=== PATIENT | female | born 1950 | race Hispanic/Latino ===

== ENCOUNTER → 2017-07-11 | Outpatient (CLI) | payer MEDICARE ==
--- NOTE | 2017-07-11 11:59 | Diagnostic Imaging Report ---
EXAM: DXA BONE DENSITY INDICATIONS: DISORDER OF BONE COMPARISON: None. FINDINGS: Proximal left femur bone mineral density (BMD) (g/cm2):0.57 Femur T-score (standard deviation relative to young adult mean BMD): -2.6 Femur Z-score (standard deviation relative to age-matched control group):-1.1 Lumbar bone mineral density (BMD) (g/cm2):0.97 Lumbar T-score (standard deviation relative to young adult mean BMD): -0.7 Lumbar Z-score (standard deviation relative to age-matched control group):1.2 Change since prior exam (%): Femur:Not applicable. Spine:Not applicable. Change since oldest prior exam (%): Femur:Not applicable. Spine:Not applicable. CONCLUSION: 1. Bone mineral density in the left femur is classified as osteoporosis. Fracture risk is high. 2. Bone mineral density in the spine is classified as normal. Fracture risk is not increased. World Health Organization Classification: *The Z-score is provided for informational purposes. The T-score is preferable for clinical decisions. When comparing exams, a change of >4% is considered statistically significant. SUGGESTED RECOMMENDATIONS: Normal \T\ Osteopenia:Consideration should be given to use of calcium supplementation, daily multiple vitamins and adequate exercise, as preventive measures against osteoporosis, if clinically indicated. Osteoporosis \T\ Severe Osteoporosis:In addition to the above, consideration should be given to medical therapy against osteoporosis, if clinically indicated. Dictated by: Ralph Dumont M.D. on 07/11/2017 at 12:07 Electronically approved by: Ralph Dumont M.D. on 07/11/2017 at 12:07
== END ==
LOC: DX 09:22
PROVIDERS: ATTEND Internal Medicine
DX: M89.9 Disorder of bone, unspecified (principal)
CPT/HCPCS: 77080

== ENCOUNTER → 2018-02-09 | Outpatient (CLI) | payer MEDICARE | LOC: MAMMO 08:24 | PROVIDERS: ATTEND Internal Medicine | DX: Z12.31 Encounter for screening mammogram for malignant neoplasm of breast (principal) | CPT/HCPCS: 77067 ==

== ENCOUNTER → 2021-07-29 | Day surgery (SDC) | payer MEDICARE ==
[2021-07-27 12:41] LABS: BASOPHILS % 0.4 % (0.0-1.0); EOSINOPHILS # (AUTO) 0.2 (0.0-0.4); EOSINOPHILS % 3.2 % (0.0-6.0); HEMATOCRIT 44.4 % (34.2-44.1); HEMOGLOBIN 14.6 g/dL (12.0-16.0); LYMPHOCYTES % 40.8 % (18.0-39.1); MEAN CORPUSCULAR HEMOGLOBIN 29.9 pg (28-32); MEAN CORPUSCULAR HGB CONC 32.9 g/dL (31-35); MONOCYTES # (AUTO) 0.5 (0.2-0.8); NEUTROPHILS # (AUTO) 3.6 (2.1-6.9); NEUTROPHILS % 48.5 % (38.7-80.0); PLATELET COUNT 197 x10e3/uL (140-360); RED BLOOD COUNT 4.88 x10e6/uL (3.6-5.1); RED CELL DISTRIBUTION WIDTH 13.7 % (11.7-14.4)
[2021-07-27 12:56] LABS: ANION GAP 15.3 mmol/L (8-16); CALCIUM 9.4 mg/dL (8.4-10.2); CREATININE, SERUM 0.66 mg/dL (0.57-1.11); POTASSIUM 4.3 mmol/L (3.5-5.1)
[~2021-07-29] MED LIST: ALENDRONATE SOD70 MG PO; ATORVASTATIN CA20 MG PO; BALANCED SALT SOLN (OPTH) 15 ML BTL IO ONE; BUPIVACAINE HC 0.75% PF 10ML VIAL INJ ONE; CETIRIZINE HCL10 MG PO; CYCLOPENTOLATE HCL 1% OPTH SOLN 2ML BTL ONE; EPINEPHRINE HCL 1:1000 1ML 1 MG/ML AMP ONE; GATIFLOXACIN(OPTH) 5 ML LIQD ONE; HUMULIN 70100 UNIT/1 SC; HYDRALAZINE HCL50 MG PO; JARDIANCE25 MG PO; LIDOCAINE HCL 2% LOCAL INJ 5 ML SDV VIAL INJ ONE; LIDOCAINE HCL-PF 4% 40 MG/1 ML 5ML AMP ONE; LOSARTAN POTASS25 MG PO; METOPROLOL SUCC50 MG PO; MIDAZOLAM HCL 2 MG/2 ML VIAL ONE; OMEGA 3 1,0001 EACH PO; PHENYLEPHRINE HCL 2 ML DROPS ONE; POVIDONE IODINE 0.05% 0.05 % ML PO ONE; POVIDONE IODINE 5% (OPTH) 30 ML BTL ONE; PROPOFOL IV EMULSION 10 MG/ML 20 ML VIAL ONE; RELION NOV100 UNIT/1 SQ; TOBRAMYCIN/DEXAMETHASONE(OPTH) 3.5 GM TUBE ONE; VITAMIN D250 MCG PO
[2021-07-29 11:33] VITALS: BP 123/52
== END | disposition home or self-care (01) ==
LOC: OR 08:08
PROVIDERS: ATTEND Ophthalmology
DX: H25.11 Age-related nuclear cataract, right eye (principal); E11.9 Type 2 diabetes mellitus without complications; I10 Essential (primary) hypertension; J45.909 Unspecified asthma, uncomplicated; E78.5 Hyperlipidemia, unspecified; Z88.8 Allergy status to other drugs, medicaments and biological substances; Z01.810 Encounter for preprocedural cardiovascular examination; Z01.812 Encounter for preprocedural laboratory examination; Z20.822 Contact with and (suspected) exposure to COVID-19; Z79.4 Long term (current) use of insulin; Z79.899 Other long term (current) drug therapy
CPT/HCPCS: 36415; 66984; 80048; 85025; 93005; J0171; U0002; 82948; J2001; J2250

== ENCOUNTER → 2021-12-30 | Day surgery (SDC) | payer MEDICARE ==
[2021-12-28 09:22] LABS: BASOPHILS # (AUTO) 0.1 (0.0-0.1); BASOPHILS % 0.7 % (0.0-1.0); EOSINOPHILS # (AUTO) 0.3 (0.0-0.4); EOSINOPHILS % 3.4 % (0.0-6.0); HEMATOCRIT 42.9 % (34.2-44.1); HEMOGLOBIN 14.4 g/dL (12.0-16.0); LYMPHOCYTES % 39.5 % (18.0-39.1); MEAN CORPUSCULAR HEMOGLOBIN 30.4 pg (28-32); MEAN CORPUSCULAR HGB CONC 33.6 g/dL (31-35); MEAN CORPUSCULAR VOLUME 90.5 fL (81-99); MONOCYTES # (AUTO) 0.5 (0.2-0.8); MONOCYTES % 6.4 % (4.4-11.3); NEUTROPHILS # (AUTO) 3.8 (2.1-6.9); NEUTROPHILS % 49.9 % (38.7-80.0); PLATELET COUNT 207 x10e3/uL (140-360); RED BLOOD COUNT 4.74 x10e6/uL (3.6-5.1); RED CELL DISTRIBUTION WIDTH 13.2 % (11.7-14.4)
[2021-12-28 09:40] LABS: ANION GAP 16.3 mmol/L (8-16); CALCIUM 8.9 mg/dL (8.4-10.2); CREATININE, SERUM 0.66 mg/dL (0.57-1.11); POTASSIUM 3.3 mmol/L (3.5-5.1)
[~2021-12-30] MED LIST changes: +FENTANYL CITRATE/PF 100MCG/2 ML INJ ONE; +LIDOCAINE 2% /EPINEPHRINE 20 ML SDV INJ ONE; -LIDOCAINE HCL 2% LOCAL INJ 5 ML SDV VIAL INJ ONE; +LYUMJEV KW100 UNIT/1 SC; +TOUJEO SOL300 UNIT/1 SC; +amlodipine PO
[2021-12-30 10:23] VITALS: BP 131/61
== END | disposition home or self-care (01) ==
LOC: OR 07:40
PROVIDERS: ATTEND Ophthalmology
DX: H25.12 Age-related nuclear cataract, left eye (principal); E11.9 Type 2 diabetes mellitus without complications; I10 Essential (primary) hypertension; J45.909 Unspecified asthma, uncomplicated; F41.9 Anxiety disorder, unspecified; Z88.8 Allergy status to other drugs, medicaments and biological substances; Z01.810 Encounter for preprocedural cardiovascular examination; Z01.812 Encounter for preprocedural laboratory examination; Z20.822 Contact with and (suspected) exposure to COVID-19; Z79.4 Long term (current) use of insulin; Z79.899 Other long term (current) drug therapy
CPT/HCPCS: 36415 ×2; 66984; 80048; 82948; 85025; 93005; J0171; J2001; J2250; J2704; J3010; U0002; V2632

== ENCOUNTER 2024-06-27 11:19 | Observation (INO) | payer MEDICARE ==
[~2024-06-27] VITALS: Ht 149.9 cm; Wt 59.0 kg
[~2024-06-27 11:19] MED LIST changes: -BALANCED SALT SOLN (OPTH) 15 ML BTL IO ONE; -BUPIVACAINE HC 0.75% PF 10ML VIAL INJ ONE; -CYCLOPENTOLATE HCL 1% OPTH SOLN 2ML BTL ONE; -EPINEPHRINE HCL 1:1000 1ML 1 MG/ML AMP ONE; -FENTANYL CITRATE/PF 100MCG/2 ML INJ ONE; -GATIFLOXACIN(OPTH) 5 ML LIQD ONE; -LIDOCAINE 2% /EPINEPHRINE 20 ML SDV INJ ONE; -LIDOCAINE HCL-PF 4% 40 MG/1 ML 5ML AMP ONE; -MIDAZOLAM HCL 2 MG/2 ML VIAL ONE; -PHENYLEPHRINE HCL 2 ML DROPS ONE; -POVIDONE IODINE 0.05% 0.05 % ML PO ONE; -POVIDONE IODINE 5% (OPTH) 30 ML BTL ONE; -PROPOFOL IV EMULSION 10 MG/ML 20 ML VIAL ONE; -TOBRAMYCIN/DEXAMETHASONE(OPTH) 3.5 GM TUBE ONE
[2024-06-27 11:31] VITALS: TEMP 98.2
[2024-06-27 12:13] LABS: BASOPHILS % 0.4 % (0.0-1.0); EOSINOPHILS # (AUTO) 0.2 (0.0-0.4); EOSINOPHILS % 2.3 % (0.0-6.0); HEMATOCRIT 39.6 % (34.2-44.1); HEMOGLOBIN 13.7 g/dL (12.0-16.0); LYMPHOCYTES # (AUTO) 2.3 (1.0-3.2); LYMPHOCYTES % 30.9 % (18.0-39.1); MEAN CORPUSCULAR HEMOGLOBIN 31.6 pg (28-32); MEAN CORPUSCULAR HGB CONC 34.6 g/dL (31-35); MEAN CORPUSCULAR VOLUME 91.2 fL (81-99); MONOCYTES # (AUTO) 0.4 (0.2-0.8); MONOCYTES % 5.6 % (4.4-11.3); NEUTROPHILS # (AUTO) 4.5 (2.1-6.9); NEUTROPHILS % 60.5 % (38.7-80.0); PLATELET COUNT 179 x10e3/uL (140-360); RED BLOOD COUNT 4.34 x10e6/uL (3.6-5.1); RED CELL DISTRIBUTION WIDTH 13.3 % (11.7-14.4)
[2024-06-27 12:46] LABS: ALBUMIN 3.8 g/dL (3.5-5.0); ALBUMIN/GLOBULIN RATIO 1.2 (0.8-2.0); ANION GAP 17.4 mmol/L (8-16); BILIRUBIN,TOTAL 0.4 mg/dL (0.2-1.2); CREATININE, SERUM 0.6 mg/dL (0.57-1.11); TOTAL PROTEIN 6.9 g/dL (6.5-8.1)
[2024-06-27 12:49] LABS: POTASSIUM 3.4 mmol/L (3.5-5.1)
[2024-06-27] MEDS ORDERED: IOPAMIDOL 370 MG/ML 100 ML INFUS..BTL INJ ONE (14:01)
[2024-06-27 15:15] VITALS: PULSE 63; RESP 16
[2024-06-27] MEDS ORDERED: SODIUM CHLORIDE FLUSH 10 ML SYR INJ PRN (15:15)
[2024-06-27] MEDS ORDERED: ONDANSETRON HCL INJ 2MG/ML 2ML 2 MG/ML VIAL IV PRN (15:15)
[2024-06-27] MEDS ORDERED: LOSARTAN POTASS50 MG PO (17:24)
[2024-06-27] MEDS ORDERED: CYCLOBENZAPRINE5 MG PO (17:24)
[2024-06-27] MEDS ORDERED: OMEPRAZOLE40 MG PO (17:24)
[2024-06-27] MEDS ORDERED: AMLODIPINE BESY10 MG PO (17:24)
[2024-06-27] MEDS ORDERED: ATORVASTATIN CA80 MG PO (17:24)
[2024-06-27] MEDS ORDERED: METOPROLOL SUCC50 MG PO (17:24)
[2024-06-27] MEDS ORDERED: ALENDRONATE SOD70 MG PO (17:24)
[2024-06-27] MEDS ORDERED: OMEGA-3 ACID ETH1 GM PO (17:24)
[2024-06-27] MEDS ORDERED: JARDIANCE25 MG PO (17:24)
[2024-06-27] MEDS ORDERED: HYDRALAZINE HCL50 MG PO (17:24)
[2024-06-27 17:33] VITALS: BP 131/60; PULSE 65; RESP 16; TEMP 97.6; O2SAT 96
[2024-06-27 20:15] VITALS: BP 149/57; PULSE 61; RESP 21; TEMP 97.8; O2SAT 96
[2024-06-27] MEDS: ATORVASTATIN 40 MG TAB PO SCH (20:40)
[2024-06-28] VITALS (10 sets, daily range): BP systolic 116–145; BP diastolic 51–64; PULSE 58–65; RESP 16–18; TEMP 97.7–98.2; O2SAT 97–99
[2024-06-28 00:04] LABS: TROPONIN I 0.007 ng/mL (0-0.300)
[2024-06-28 06:34] LABS: BASOPHILS % 0.5 % (0.0-1.0); EOSINOPHILS # (AUTO) 0.4 (0.0-0.4); EOSINOPHILS % 4.6 % (0.0-6.0); HEMATOCRIT 40.7 % (34.2-44.1); HEMOGLOBIN 13.2 g/dL (12.0-16.0); LYMPHOCYTES # (AUTO) 2.9 (1.0-3.2); LYMPHOCYTES % 37.5 % (18.0-39.1); MEAN CORPUSCULAR HEMOGLOBIN 31.1 pg (28-32); MEAN CORPUSCULAR HGB CONC 32.4 g/dL (31-35); MEAN CORPUSCULAR VOLUME 95.8 fL (81-99); MONOCYTES # (AUTO) 0.5 (0.2-0.8); MONOCYTES % 5.8 % (4.4-11.3); NEUTROPHILS % 51.3 % (38.7-80.0); PLATELET COUNT 164 x10e3/uL (140-360); RED BLOOD COUNT 4.25 x10e6/uL (3.6-5.1); RED CELL DISTRIBUTION WIDTH 13.2 % (11.7-14.4); WHITE BLOOD COUNT 7.78 x10e3/uL (4.8-10.8)
[2024-06-28 06:57] LABS: CREATINE KINASE 40 IU/L (29-168)
[2024-06-28 06:59] LABS: ALBUMIN 3.4 g/dL (3.5-5.0); ALBUMIN/GLOBULIN RATIO 1.2 (0.8-2.0); ANION GAP 16.9 mmol/L (8-16); BILIRUBIN,TOTAL 0.4 mg/dL (0.2-1.2); CALCIUM 8.7 mg/dL (8.4-10.2); CREATININE, SERUM 0.64 mg/dL (0.57-1.11); POTASSIUM 3.9 mmol/L (3.5-5.1); TOTAL PROTEIN 6.3 g/dL (6.5-8.1)
[2024-06-28 07:05] LABS: TROPONIN I < 0.001 ng/mL (0-0.300)
[2024-06-28] MEDS: FENOFIBRATE 145 MG TAB PO SCH (09:07)
[2024-06-28] MEDS ORDERED: DEXTROSE 50% SYRINGE 50 ML IV PRN ×2 (09:45→12:15)
[2024-06-28] MEDS: INSULIN LISPRO 100 UNIT/1 ML 3ML VIAL SQ SCH (12:13)
[2024-06-28] MEDS ORDERED: MELATONIN 3 MG TAB PO PRN (12:15)
[2024-06-28] MEDS ORDERED: SIMETHICONE 80 MG CHEW PO PRN (12:15)
[2024-06-28] MEDS ORDERED: IBUPROFEN 400 MG TAB PO PRN (13:00)
[2024-06-28] MEDS: IBUPROFEN 600 MG TAB PO PRN (14:11)
[2024-06-28 15:44] LABS: CHOL/HDL RATIO 4.6 (3.0-3.6)
[2024-06-28] MEDS ORDERED: INSULIN REGULAR, HUMAN 100 UNIT/1 ML SQ SCH (16:30)
[2024-06-28] MEDS: PANTOPRAZOLE SOD 40 MG TABEC PO SCH (17:40)
[2024-06-28] MEDS ORDERED: ATORVASTATIN CALCIUM PO SCH (21:00)
[2024-06-29 03:33] VITALS: BP 134/63; PULSE 60; RESP 18; TEMP 97.7; O2SAT 98
[2024-06-29 06:46] LABS: BASOPHILS % 0.5 % (0.0-1.0); EOSINOPHILS # (AUTO) 0.3 (0.0-0.4); EOSINOPHILS % 4.4 % (0.0-6.0); HEMATOCRIT 39.6 % (34.2-44.1); HEMOGLOBIN 13.8 g/dL (12.0-16.0); LYMPHOCYTES # (AUTO) 2.7 (1.0-3.2); LYMPHOCYTES % 41.2 % (18.0-39.1); MEAN CORPUSCULAR HEMOGLOBIN 31.7 pg (28-32); MEAN CORPUSCULAR HGB CONC 34.8 g/dL (31-35); MEAN CORPUSCULAR VOLUME 90.8 fL (81-99); MONOCYTES # (AUTO) 0.5 (0.2-0.8); NEUTROPHILS # (AUTO) 3.1 (2.1-6.9); NEUTROPHILS % 46.7 % (38.7-80.0); PLATELET COUNT 151 x10e3/uL (140-360); RED BLOOD COUNT 4.36 x10e6/uL (3.6-5.1); WHITE BLOOD COUNT 6.53 x10e3/uL (4.8-10.8)
[2024-06-29 07:15] LABS: ANION GAP 16.1 mmol/L (8-16); CALCIUM 8.9 mg/dL (8.4-10.2); CREATININE, SERUM 0.65 mg/dL (0.57-1.11); POTASSIUM 4.1 mmol/L (3.5-5.1)
[2024-06-29 08:29] VITALS: BP 131/55; PULSE 67; RESP 19; TEMP 97.8; O2SAT 98
[2024-06-29 09:00] VITALS: BP 131/55; PULSE 67; RESP 19; TEMP 97.8; O2SAT 98
[2024-06-29] MEDS: SENNOSIDES 8.6 MG TAB PO SCH (09:22)
[2024-06-29] MEDS: AMLODIPINE BESYLATE 5 MG TAB PO SCH (09:22)
[2024-06-29] MEDS ORDERED: TRICOR145 MG PO (09:24)
[2024-06-29] MEDS ORDERED: MOTRIN200 MG PO (09:34)
[2024-06-29] MEDS: INSULIN GLARGINE 100 UNITS/ML VIAL SQ ONE (11:01)
[2024-06-29 12:45] VITALS: BP 135/52; PULSE 20; RESP 20; TEMP 97.5; O2SAT 98
== END 2024-06-30 08:06 | disposition home or self-care (01) ==
LOC: ER 11:24 → MERGE 15:09 → ERHOLD 15:09 → MED/SURG3 16:30
PROVIDERS: ADMIT Internal Medicine; ATTEND Internal Medicine
DX: K21.9 Gastro-esophageal reflux disease without esophagitis (principal); R07.89 Other chest pain; R94.31 Abnormal electrocardiogram [ECG] [EKG]; I10 Essential (primary) hypertension; E78.5 Hyperlipidemia, unspecified; E78.1 Pure hyperglyceridemia; E11.9 Type 2 diabetes mellitus without complications; Z79.84 Long term (current) use of oral hypoglycemic drugs; Z79.899 Other long term (current) drug therapy; Z79.4 Long term (current) use of insulin
CPT/HCPCS: 36415 ×3; 71045; 71046; 74177; 80048; 80053 ×2; 80061; 82550 ×2; 82948 ×2; 83036; 83690; 83880; 84484 ×2; 85025 ×3; 93005; 93306; 97116; 97161; 99283; G0378 ×4; Q9967; S0164 ×2